=== PATIENT | female | born 1995 ===

== ENCOUNTER 2019-09-11 10:48 | Inpatient (IN) | payer BC ==
[2019-09-11 12:24] VITALS: BMI 44.2
[2019-09-11] MEDS ORDERED: Lactated Ringer's 1,000 ML IV SCH (13:01)
[2019-09-11] MEDS ORDERED: NS w/ Oxytocin 10 units 500 ML IV SCH (13:01)
[2019-09-11] MEDS ORDERED: Lidocaine 1% (PF) 30 ML VIAL SC PRN (13:01)
[2019-09-11] MEDS ORDERED: HYDROcodone/Acetaminophen 5/325 mg Tablet PO PRN ×4 (13:01→22:16)
[2019-09-11] MEDS ORDERED: Butorphanol Tartrate 1 MG/ML VIAL SLOW IVP PRN (13:01)
[2019-09-11] MEDS ORDERED: hydrALAZINE 20 MG/ML VIAL SLOW IVP PRN ×2 (13:01→22:16)
[2019-09-11] MEDS ORDERED: Promethazine HCl 25 MG/ML VIAL IM PRN (13:01)
[2019-09-11] MEDS ORDERED: Ondansetron PF 4 MG/2 ML Vial IVP PRN ×2 (13:01→22:16)
[2019-09-11] MEDS ORDERED: NS / Oxytocin 40 units/1000ml 1,000 ML IV PRN (13:01)
[2019-09-11] MEDS ORDERED: Misoprostol 100 MCG TAB VAG SCH ×2 (13:01→15:00)
[2019-09-11] MEDS ORDERED: Ibuprofen 800 MG TAB PO PRN (13:01)
[2019-09-11] MEDS ORDERED: Misoprostol 100 MCG TAB ONE (13:04)
[2019-09-11] MEDS: Lactated Ringer's 1,000 ML IV SCH ×2 (13:29→17:48)
[2019-09-11 13:33] LABS: Hemoglobin 12.3 g/dL (12.0-16.0); Mean Corpuscular HGB CONC 34.6 g/dL (32.0-36.0); Mean Corpuscular Hemoglobin 29.4 pg (27.0-31.0); Mean Corpuscular Volume 84.8 fL (78.0-98.0); Mean Platelet Volume 8.7 fL (7.4-10.4); Platelet Count 222 thou/uL (130-400); RBC Distribution Width 13.5 % (11.5-14.5); Red Blood Cell (RBC) Count 4.19 mill/uL (4.20-5.40); White Blood Cell (WBC) Count 12.7 thou/uL (4.8-10.8)
[2019-09-11 14:15] LABS: HBSAg Index 0.15 S/CO (0-0.99); Hep B Surf Ag Non-Reactive S/CO (NonReactive)
[2019-09-11] MEDS ORDERED: Lidocaine 2% MPF 10 ML AMP (For Epidural Use) ONE (15:00)
[2019-09-11] MEDS ORDERED: Bupivacaine PF 0.5% 30 ML VIAL ONE (15:00)
[2019-09-11 15:04] LABS: Syphilis Antibody Nonreactive (Nonreactive); Syphilis Antibody Index 0.09 S/CO (<1.00 Non-Reactive)
[2019-09-11] MEDS ORDERED: Fentanyl 4 mcg/Bup 0.1% Cadd 100 ML ONE (17:04)
[2019-09-11] MEDS ORDERED: Terbutaline Sulfate 1 MG/ML VIAL ONE (18:52)
[2019-09-11] MEDS ORDERED: Lidocaine 1% (PF) 30 ML VIAL ONE (19:00)
[2019-09-11] MEDS: NS / Oxytocin 40 units/1000ml 1,000 ML ONE ×2 (19:08→20:27)
[2019-09-11 19:24] LABS: Actual Bicarbonate (HCO3a) 19.3 mEq/L (22-28); Base Excess (BEa) -7.8 mEq/L (-2.0 to +3.0)
[2019-09-11] MEDS ORDERED: CEFAZOLIN 2 GM in Premix Bag 1 BAG IVPB SCH (21:00)
--- NOTE | 2019-09-11 21:05 | PDOC.LDHP ---
Labor and Delivery H&P Chief complaint: other (Direct admit for failed BPP ultrasound at 41 weeks gestation) HPI: Patient was sent from office for failed BPP 01/30 Current gestational age (weeks): 41 Due date: 09/03/19 Dating criteria: first trimester ultrasound Grav: 1 Para: 0 Current complications: other (postdates BPP 01/30 obesity) Abnormal US findings: No Past Medical History: Depression Obesity Current medications: pre-hermelindo vitamins, other (Zoloft 50mg) Previous surgical history: other (wisdom teeth extraction) Allergies/Adverse Reactions: Allergies Allergy/AdvReac Type Severity Reaction Status Date / Time No Known Allergies Allergy Unverified 09/11/19 12:21 Social history: none - Physical Exam Vital signs reviewed and normal: yes General: NAD Lungs: nonlabored breathing Abdomen: gravid FHT: category 1 - OB Labs Blood type: O RH: positive Antibody Screen: negative HIV: negative RPR: negative HEPSAg: negative 1 hour GCT: positive 3 hour GTT: Passed GBS: negative Urine drug screen: negative Rubella: immune - Assessment L&D Assessment: medically indicated induction (postdates and failed survelliance) - Plan Plan: admit to L&D, cervical ripening
[2019-09-11] MEDS ORDERED: Milk Of Magnesia 30 ML UDCUP PO PRN (22:16)
[2019-09-11] MEDS ORDERED: Bisacodyl 10 MG SUPP PR PRN (22:16)
[2019-09-11] MEDS ORDERED: NS / Oxytocin 40 units/1000ml 1,000 ML IV SCH (22:16)
[2019-09-11] MEDS ORDERED: Benzocaine-Menthol 82.5 ML CAN TOP PRN (22:16)
--- NOTE | 2019-09-11 23:34 | OP ---
DATE OF PROCEDURE: 09/11/2019 PREOPERATIVE DIAGNOSIS: Fourth-degree laceration, status post spontaneous vaginal delivery. POSTOPERATIVE DIAGNOSIS: Fourth-degree laceration, status post spontaneous vaginal delivery. PROCEDURE PERFORMED: Repair of fourth-degree perineal laceration status post spontaneous vaginal delivery. PSYCHIATRIC TECH: Arely Brantley, certified nurse content checker. ANESTHESIA: Epidural and local 20 mL 1% lidocaine. DISPOSITION: Routine Recovery. QUANTITATIVE BLOOD LOSS: Pending. OPERATIVE FINDINGS: 1. Very minimal marginal fourth-degree lacerations, status post spontaneous vaginal delivery. 2. Repair with 2-0 chromic in usual manner. 3. 2 g Ancef IV at the time of repair. DESCRIPTION OF PROCEDURE: The patient was delivered in a spontaneous manner by Arely Brantley, certified nurse content checker. Please see her note. Approximately 15 minutes after delivery, I was contacted by her for suspected third-degree laceration. I presented to the room. The patient had received Stadol. She had an epidural that was functioning marginally and had received 20 mL of local anesthetic as well. My inspection revealed the patient to have moderate swelling, no obvious hematoma, and an extension of a perineal laceration that came down really to the edge of the external anus, but did not extend up to visible or digital exam. Initial anchor at the extent most anal extension of the laceration was placed in with 2-0 chromic and ran out subcuticularly to the level of the transected sphincter. The sphincter was reapproximated using three [id number] of 2-0 chromic to plicate it together. The perineal body was then plicated together as well. The vaginal extension of the laceration was identified and closed using a running 2-0 chromic locking up to the level of the hymenal ring and then further reapproximating the perineal body. After this was done, the 2-0 chromic started at the most anal aspect of the laceration was run subcuticularly up to the level of the hymenal ring as well. Good approximation and good hemostasis were noted. The patient tolerated the procedure well although there was some degree of movement that made close inspection less than ideal, but seemed adequate and did not seem to require going to the OR with general anesthetic. The patient will be placed on stool softeners and followed closely by Arely Brantley, we will provide consultation if needed. Job ID: [id number]
[2019-09-12] MEDS: Ibuprofen 800 MG TAB PO SCH ×4 (06:02→21:25)
[2019-09-12] MEDS: Ferrous Sulfate 325 MG TAB PO SCH ×2 (08:50→16:39)
[2019-09-12] MEDS: Prenatal Vitamin 1 TAB PO SCH (08:56)
[2019-09-12] MEDS: Docusate Calcium (SURFAK) 240 MG CAP PO SCH (08:56)
[2019-09-12] MEDS ORDERED: Adacel (T-DAP) 0.5 ML SYRINGE IM ONE (09:00)
[2019-09-12] MEDS ORDERED: FLU VACC QS2019-20(6MOS UP)/PF 60 MCG/0.5 ML SYRINGE IM ONE (10:45)
--- NOTE | 2019-09-12 20:49 | PDOC.OPDEL ---
OB Operative/Delivery Note Delivery Dr/Surgeon: Guero Brantley Assist: Bradley Johnson Pre-Delivery Diagnosis: active labor, medically indicated induction, other ( postdates) Procedure/Post Delivery Dx: spontaneous vaginal delivery (with Ritgen) Weeks gestation: 41 Anesthesia: epidural - Findings a Sex: male Weight: 8 lb 4 oz - Additional Findings/Plan Placenta delivered: spontaneous Repaired Obstetrical Laceration: 4th degree Estimated blood loss: 500mL Compilations/Other Findings: partial 4th degree laceration. Feal bradycardia prior to delivery. Deep decels to 40s with delivery immenent Ritgen to expedite delivery and partial 4th degree laceration Rishi team at bedside Post delivery plan: routine recovery
--- NOTE | 2019-09-12 20:51 | PDOC.PP ---
Post Progress Note Post Day #: 1 Subjective: Patient is doing well. She is only taking motrin for pain. Had a BM already without difficulty. PO intake tolerated: yes Flatus: yes Ambulation: yes Vital Signs (12 hours) Temp Pulse Resp BP Pulse Ox 09/12/19 17:28 98.1 F 104 H 16 123/77 97 09/12/19 12:17 97.9 F 103 H 20 118/67 Weight Weight 250 lb - Physical Examination General: NAD Cardiovascular: RRR Respiratory: clear to auscultation bilaterally, non-labored breathing Abdominal: + bowel sounds, no distention Extremities: negative homans (B) Skin: no rash Perineum: Not examined due to multiple visitors in the room Neurological: no gross focal deficits Psychiatric: A&Ox3, normal affect Result Diagrams: 09/11/19 13:19 Additional Labs: Post Labs Blood Type O POSITIVE 09/11/19 14:03 Hep Bs Antigen Non-Reactive S/CO (NonReactive) 09/11/19 13:19 (1) (spontaneous vaginal delivery) Code(s): O80 - ENCOUNTER FOR FULL-TERM UNCOMPLICATED DELIVERY Status: Acute (2) 41 weeks gestation of Code(s): Z3A.41 - 41 WEEKS GESTATION OF Status: Acute (3) Anal sphincter tear Code(s): S31.831A - LACERATION WITHOUT FOREIGN BODY OF ANUS, INITIAL ENCOUNTER Status: Acute (4) Depression Code(s): F32.9 - MAJOR DEPRESSIVE DISORDER, SINGLE EPISODE, UNSPECIFIED Status : Acute - Assessment/Plan A: G1 now p1 sp vaginal delivery complicated by heart rate abnoramlity and partial 4th degree laceration P: Continue stool softeners, milk of mag and start stiz baths. Evaluate for discharge home tomorrow
[2019-09-13] MEDS: Docusate Calcium (SURFAK) 240 MG CAP PO SCH ×2 (04:53→09:36)
[2019-09-13] MEDS: Ibuprofen 800 MG TAB PO SCH ×2 (06:04→13:49)
[2019-09-13] MEDS: Ferrous Sulfate 325 MG TAB PO SCH ×2 (08:10→13:56)
[2019-09-13] MEDS: Prenatal Vitamin 1 TAB PO SCH (09:35)
[2019-09-13 18:14] VITALS: BP 123/67; TEMP 98.4
== END 2019-09-13 19:05 | disposition home or self-care (01) | DRG 768 ==
LOC: L&D/OP 10:48 → L&D 16:28 → 3SW 22:50
PROVIDERS: ADMIT Obstetrics & Gynecology; ATTEND Obstetrics & Gynecology
PROC: 10E0XZZ Delivery of Products of Conception, External Approach (ICD-10-PCS; principal; 2019-09-11)
PROC: 0DQP0ZZ Repair Rectum, Open Approach (ICD-10-PCS; 2019-09-11)
DX: O48.0 Post-term pregnancy (principal); Z37.0 Single live birth; O70.4 Anal sphincter tear complicating delivery, not associated with third degree laceration; Z3A.41 41 weeks gestation of pregnancy; O99.214 Obesity complicating childbirth; F32.9 Major depressive disorder, single episode, unspecified; O99.344 Other mental disorders complicating childbirth; O69.81X0 Labor and delivery complicated by cord around neck, without compression, not applicable or unspecified; O77.0 Labor and delivery complicated by meconium in amniotic fluid; O76 Abnormality in fetal heart rate and rhythm complicating labor and delivery
CPT/HCPCS: 36415; 51702; 82805; 85027; 86780; 86850; 86900; 86901; 87340; J0595; J0690; J2001; J3105; S0020